=== PATIENT | male | born 1945 | race Asian ===

== ENCOUNTER 2016-08-29 19:27 | Emergency (ER) | payer MEDICARE, OTHER ==
[~2016-08-29] VITALS: Ht 162.6 cm; Wt 77.3 kg
[2016-08-29] MEDS ORDERED: ASPI-556 PO (19:33)
[2016-08-29] MEDS ORDERED: IBUP-2070 PO (19:33)
[2016-08-29] MEDS ORDERED: SIMV20 PO (19:33)
[2016-08-29] MEDS ORDERED: ALBU8.5H IH (19:33)
[2016-08-29] MEDS ORDERED: OMEP20 PO (19:33)
[2016-08-29] MEDS ORDERED: ALEN70TA48 PO (19:33)
[2016-08-29] MEDS ORDERED: LISI-662 PO (19:33)
[2016-08-29] MEDS ORDERED: METF500T4 PO (19:33)
[2016-08-29] MEDS ORDERED: CALC-776 PO (19:33)
[2016-08-29 19:36] LABS: GLUCOSE COMMENT 1 Doctor Notified; GLUCOSE,POINT OF CARE 202 MG/DL (70-110)
[2016-08-29] MEDS ORDERED: ACETAMINOPHEN 500 MG TABLET PO ONE (19:45)
[2016-08-29 20:14] LABS: INFLUENZA TYPE B NEGATIVE FOR TYPE B (NEGATIVE)
[2016-08-29] MEDS ORDERED: ALBUTEROL SULFATE 2.5 MG/0.5 ML NEB SOLUTION NEB ONE (20:45)
[2016-08-29] MEDS ORDERED: IPRATROPIUM BROMIDE 0.5 MG/2.5 ML NEB SOLUTION NEB ONE (20:45)
[2016-08-29] MEDS ORDERED: PredniSONE 20 MG TABLET PO ONE (20:45)
[2016-08-29 21:46] VITALS: BP 136/62
[2016-08-30] MEDS ORDERED: ACETAMINOPHEN 500 MG TABLET ONE (19:54)
[2016-08-30] MEDS ORDERED: 0.9% SODIUM CHLORIDE 5 ML NEB SOLUTION NEB ONE (19:55)
== END 2016-08-29 21:47 | disposition home or self-care (01) ==
LOC: EMS 19:33
DX: J44.1 Chronic obstructive pulmonary disease with (acute) exacerbation (principal); R50.9 Fever, unspecified; F17.200 Nicotine dependence, unspecified, uncomplicated; Z79.82 Long term (current) use of aspirin; I10 Essential (primary) hypertension; E78.5 Hyperlipidemia, unspecified; E11.9 Type 2 diabetes mellitus without complications; K21.9 Gastro-esophageal reflux disease without esophagitis
CPT/HCPCS: 82962; 87804; 94640; 99284; 99406

== ENCOUNTER 2023-03-30 07:28 | Inpatient (IN) | payer MEDICARE, OTHER ==
[~2023-03-30] VITALS: Ht 167.6 cm; Wt 72.2 kg
[~2023-03-30 07:28] MED LIST: ALBU8.5H8 IH; ALEN70TA65 PO; ASPI-556 PO; CALC-26 PO; IBUP-1492 PO; LISI-894 PO; METF-1211 PO; OMEP20 PO; SIMV-260 PO
[2023-03-30 07:50] LABS: BASOPHILS % (AUTO) 0.7 % (0.0-2.0); EOSINOPHILS % (AUTO) 1.4 % (1.0-6.0); HEMATOCRIT 33.5 % (41-53); HEMOGLOBIN 10.7 g/dL (13.5-17.5); LYMPHOCYTES # (AUTO) 2.4 K/uL (1.0-4.8); LYMPHOCYTES % (AUTO) 16.1 % (22.0-44.0); MEAN CORPUSCULAR VOLUME 66 fL (80-100); MONOCYTES # (AUTO) 1.1 K/uL (0.1-1.0); MONOCYTES % (AUTO) 7.3 % (2.0-9.0); NEUTROPHILS # (AUTO) 11.2 K/uL (1.8-7.7); NEUTROPHILS % (AUTO) 74.5 % (40.0-70.0); PLATELET COUNT (AUTO) 237 K/uL (150-450); RED CELL DISTRIBUTION WIDTH 14.7 % (11.5-14.5); WHITE BLOOD COUNT (AUTO) 15.1 K/uL (4.5-11.0)
[2023-03-30 07:58] LABS: CALCIUM, TOTAL 9.3 mg/dL (8.8-10.5); CARBON DIOXIDE 30 mmol/L (22-29); CHLORIDE 99 mmol/L (98-107); CREATININE 1.31 mg/dL (0.60-1.30); GLOMERULAR FILTR. RATE CALC 53 mL/min (>60); GLUCOSE,RANDOM 227 mg/dL (70-110); POTASSIUM 3.5 mmol/L (3.5-5.1); UREA NITROGEN, BLOOD 10 mg/dL (7-18)
[2023-03-30 08:01] LABS: COVID AG,FIA SOURCE NASAL SWAB
[2023-03-30 08:04] LABS: ALANINE AMINOTRANSFERASE 68 U/L (12-78); ALBUMIN 3.4 g/dL (3.4-5.0); ALKALINE PHOSPHATASE 54 U/L (46-116); ANION GAP 4 mmol/L (8-16); ASPARTATE AMINOTRANSFERASE 33 U/L (15-37); BILIRUBIN,TOTAL 0.6 mg/dL (0.1-1.0); SODIUM SERUM 133 mmol/L (136-145); TOTAL PROTEIN, SERUM 7.2 g/dL (6.4-8.2)
[2023-03-30] MEDS ORDERED: 0.9% SODIUM CHLORIDE 10 ML SYRINGE IVP PRN (08:30)
[2023-03-30] MEDS ORDERED: CefTRIAXone 1 GM/DEXTROSE 50 ML IV ONE (08:30)
[2023-03-30] MEDS ORDERED: SODIUM CHLORIDE 0.9% 1,900 ML IV ONE (08:30)
[2023-03-30 08:48] LABS: INFLUENZA TYPE A NEGATIVE FOR TYPE A (NEGATIVE); INFLUENZA TYPE B NEGATIVE FOR TYPE B (NEGATIVE)
[2023-03-30 08:49] LABS: SARS-COV2 (COVID) ANTIGEN,FIA Positive (Negative)
[2023-03-30 09:06] LABS: CREATINE KINASE, TOTAL ONLY 69 U/L (39-308)
[2023-03-30 09:09] LABS: PROTHROMBIN TIME 10.4 SEC (9.4-11.6)
[2023-03-30 09:11] LABS: RBC MORPHOLOGY COMMENT ABNORMAL RBC MORPH
[2023-03-30 11:41] LABS: APPEARANCE,URINE CLEAR (CLEAR); BILIRUBIN,URINE NEGATIVE (NEGATIVE); COLOR,URINE LIGHT YELLOW (YELLOW); GLUCOSE, URINE (UA) NEGATIVE (NEGATIVE); KETONES,URINE NEGATIVE (NEGATIVE); LEUKOCYTE ESTERASE ,URINE NEGATIVE (NEGATIVE); NITRATE,URINE NEGATIVE (NEGATIVE); OCCULT BLOOD,URINE NEGATIVE (NEGATIVE); PH,URINE 5.5 (5.0-8.0); PROTEIN,URINE NEGATIVE (NEGATIVE); SPECIFIC GRAVITIY, URINE 1.016 (1.003-1.030); UROBILINOGEN,URINE <=1.0 mg/dL (<=1.0)
[2023-03-30] MEDS ORDERED: ACETAMINOPHEN 500 MG TABLET PO ONE (11:45)
[2023-03-30] MEDS ORDERED: KETOROLAC TROMETHAMINE 30 MG/ML VIAL IVP ONE (11:45)
[2023-03-30 12:07] LABS: TROPONIN I-HIGH SENSITIVITY 18 ng/L (<76)
[2023-03-30 13:31] VITALS: BP 94/49; PULSE 73; RESP 20; TEMP 99.1
[2023-03-30] MEDS ORDERED: ALBUTEROL SULFATE HFA 90 MCG/PUFF 8 GM INHALER IH PRN (13:45)
[2023-03-30] MEDS ORDERED: BISACODYL 10 MG RECTAL RECTAL SUPPOSITORY PR PRN (13:45)
[2023-03-30] MEDS ORDERED: MORPHINE SULFATE 2 MG/ML SYRINGE IVP PRN (13:45)
[2023-03-30] MEDS ORDERED: ONDANSETRON HCL 4 MG/2 ML VIAL IVP PRN (13:45)
[2023-03-30] MEDS ORDERED: ZOLPIDEM TARTRATE 5 MG TABLET PO PRN (13:45)
[2023-03-30] MEDS ORDERED: ACETAMINOPHEN 325 MG TABLET PO PRN (13:45)
[2023-03-30] MEDS ORDERED: MAGNESIUM HYDROXIDE SUSPENSION 30 ML UDCUP PO PRN (13:45)
[2023-03-30] MEDS ORDERED: HYDROCODONE/ACETAMINOPHEN 5-325 MG TABLET PO PRN (13:45)
[2023-03-30] MEDS ORDERED: ALBU18HF12 IH (13:52)
[2023-03-30] MEDS ORDERED: ASPI-1444 PO (13:52)
[2023-03-30] MEDS: DEXAMETHASONE 4 MG TABLET PO SCH (14:41)
[2023-03-30] MEDS: HEPARIN SODIUM,PORCINE 5,000 UNITS/ML VIAL SQ SCH ×2 (15:48→23:31)
[2023-03-30] MEDS ORDERED: REMDESIVIR 200 MG in SODIUM CHLORIDE 0.9% 250 ML IV ONE (16:00)
[2023-03-30] MEDS ORDERED: SODIUM CHLORIDE 0.9% 250 ML IV ONE ×2 (16:36→16:45)
[2023-03-30] MEDS: SODIUM CHLORIDE 0.9% 1,000 ML IV SCH (18:18)
[2023-03-30] MEDS: MetFORMIN HCL 500 MG TABLET PO SCH (18:25)
[2023-03-30 18:27] LABS: GLUCOMETER DEV NAME(LOC) 6S.1B; GLUCOSE,POINT OF CARE 206 MG/DL (70-110)
[2023-03-30 20:17] VITALS: BP 106/52; PULSE 65; RESP 18; TEMP 99.4
[2023-03-30] MEDS: DOCUSATE SODIUM 100 MG CAPSULE PO SCH (20:20)
[2023-03-30] MEDS: INSULIN LISPRO 100 UNITS/ML SQ PRN (21:13)
[2023-03-30] MEDS ORDERED: DEXTROSE 50%-WATER 25 GM/50 ML SYRINGE IVP PRN (21:15)
[2023-03-30] MEDS: BENZOCAINE/MENTHOL LOZENGE PO PRN (23:56)
[2023-03-31 04:12] VITALS: BP 101/58; PULSE 73; RESP 18; TEMP 98.8
[2023-03-31] MEDS ORDERED: GuaiFENesin/D-METHORPHAN [SUGAR-FREE] 200-20MG/10 ML SYRUP UDCUP PO PRN (05:45)
[2023-03-31] MEDS: BENZOCAINE/MENTHOL LOZENGE PO PRN ×2 (06:27→17:50)
[2023-03-31] MEDS: SODIUM CHLORIDE 0.9% 1,000 ML IV SCH ×2 (06:28→23:27)
[2023-03-31 06:31] LABS: GLUCOMETER DEV NAME(LOC) 6N.1B; GLUCOSE,POINT OF CARE 454 MG/DL (70-110)
[2023-03-31 06:42] LABS: BASOPHILS % (AUTO) 0.2 % (0.0-2.0); EOSINOPHILS % (AUTO) 0 % (1.0-6.0); HEMOGLOBIN 9.6 g/dL (13.5-17.5); LYMPHOCYTES # (AUTO) 1.2 K/uL (1.0-4.8); LYMPHOCYTES % (AUTO) 15.3 % (22.0-44.0); MEAN CORPUSCULAR HEMOGLOBIN 21.7 pg (26.0-34.0); MEAN CORPUSCULAR HGB CONC 33.2 G/dL (31.0-37.0); MEAN CORPUSCULAR VOLUME 65 fL (80-100); MONOCYTES # (AUTO) 0.4 K/uL (0.1-1.0); MONOCYTES % (AUTO) 5.8 % (2.0-9.0); NEUTROPHILS % (AUTO) 78.7 % (40.0-70.0); PLATELET COUNT (AUTO) 201 K/uL (150-450); RED BLOOD CELL COUNT(AUTO) 4.44 MIL/uL (4.50-5.90); RED CELL DISTRIBUTION WIDTH 14.9 % (11.5-14.5); WHITE BLOOD COUNT (AUTO) 7.7 K/uL (4.5-11.0)
[2023-03-31] MEDS: INSULIN LISPRO 100 UNITS/ML SQ PRN ×4 (06:43→20:28)
[2023-03-31 07:11] LABS: GLUCOMETER DEV NAME(LOC) 6N.1B; GLUCOSE,POINT OF CARE 191 MG/DL (70-110)
[2023-03-31 07:24] LABS: ALBUMIN 2.6 g/dL (3.4-5.0); BILIRUBIN,TOTAL 0.5 mg/dL (0.1-1.0); CALCIUM, TOTAL 7.8 mg/dL (8.8-10.5); CREATININE 1.21 mg/dL (0.60-1.30); POTASSIUM 4.2 mmol/L (3.5-5.1); TOTAL PROTEIN, SERUM 6.2 g/dL (6.4-8.2)
[2023-03-31 07:44] LABS: RBC MORPHOLOGY COMMENT ABNORMAL RBC MORPH
[2023-03-31 08:25] VITALS: BP 101/53; PULSE 61; RESP 19; TEMP 99.6
[2023-03-31] MEDS: MetFORMIN HCL 500 MG TABLET PO SCH ×2 (08:36→17:50)
[2023-03-31] MEDS: DOCUSATE SODIUM 100 MG CAPSULE PO SCH ×2 (08:37→20:21)
[2023-03-31] MEDS: DEXAMETHASONE 4 MG TABLET PO SCH (08:37)
[2023-03-31] MEDS: HEPARIN SODIUM,PORCINE 5,000 UNITS/ML VIAL SQ SCH ×3 (08:37→23:25)
[2023-03-31] MEDS: SIMVASTATIN 20 MG TABLET PO SCH (08:38)
[2023-03-31] MEDS: PANTOPRAZOLE SODIUM 40 MG DR TABLET PO SCH (08:38)
[2023-03-31] MEDS: ASPIRIN 81 MG DR TABLET PO SCH (08:38)
[2023-03-31] MEDS: LISINOPRIL 20 MG TABLET PO SCH (08:39)
[2023-03-31] MEDS: REMDESIVIR 100 MG in SODIUM CHLORIDE 0.9% 250 ML IV SCH (16:06)
[2023-03-31 16:28] VITALS: BP 119/62; PULSE 64; RESP 19; TEMP 98.8
[2023-03-31 19:41] LABS: GLUCOMETER DEV NAME(LOC) 4E.2; GLUCOSE,POINT OF CARE 284 MG/DL (70-110)
[2023-03-31 19:41] LABS: GLUCOMETER DEV NAME(LOC) 4E.2; GLUCOSE,POINT OF CARE 274 MG/DL (70-110)
[2023-03-31 20:08] VITALS: BP 105/58; PULSE 66; RESP 18; TEMP 99.4
[2023-04-01 05:40] VITALS: BP 123/59; PULSE 56; RESP 18; TEMP 97.9
[2023-04-01] MEDS: INSULIN LISPRO 100 UNITS/ML SQ PRN ×4 (05:57→20:29)
[2023-04-01 06:30] LABS: EOSINOPHILS % (AUTO) 0 % (1.0-6.0); HEMATOCRIT 30.2 % (41-53); HEMOGLOBIN 9.6 g/dL (13.5-17.5); LYMPHOCYTES # (AUTO) 2.4 K/uL (1.0-4.8); LYMPHOCYTES % (AUTO) 18.5 % (22.0-44.0); MEAN CORPUSCULAR HGB CONC 31.8 G/dL (31.0-37.0); MEAN CORPUSCULAR VOLUME 66 fL (80-100); MONOCYTES # (AUTO) 1.2 K/uL (0.1-1.0); MONOCYTES % (AUTO) 9.5 % (2.0-9.0); NEUTROPHILS # (AUTO) 9.2 K/uL (1.8-7.7); PLATELET COUNT (AUTO) 205 K/uL (150-450); RED BLOOD CELL COUNT(AUTO) 4.56 MIL/uL (4.50-5.90); RED CELL DISTRIBUTION WIDTH 15.1 % (11.5-14.5); WHITE BLOOD COUNT (AUTO) 12.8 K/uL (4.5-11.0)
[2023-04-01 06:42] LABS: ALANINE AMINOTRANSFERASE 46 U/L (12-78); ALBUMIN 2.4 g/dL (3.4-5.0); ALKALINE PHOSPHATASE 35 U/L (46-116); ANION GAP 7 mmol/L (8-16); ASPARTATE AMINOTRANSFERASE 29 U/L (15-37); BILIRUBIN,TOTAL 0.4 mg/dL (0.1-1.0); CARBON DIOXIDE 25 mmol/L (22-29); CHLORIDE 105 mmol/L (98-107); CREATININE 1.08 mg/dL (0.60-1.30); GLOMERULAR FILTR. RATE CALC > 60 mL/min (>60); GLUCOSE,RANDOM 204 mg/dL (70-110); SODIUM SERUM 137 mmol/L (136-145); TOTAL PROTEIN, SERUM 6.1 g/dL (6.4-8.2); UREA NITROGEN, BLOOD 20 mg/dL (7-18)
[2023-04-01 07:46] LABS: GLUCOMETER DEV NAME(LOC) 6N.2B; GLUCOSE,POINT OF CARE 213 MG/DL (70-110)
[2023-04-01 07:57] LABS: RBC MORPHOLOGY COMMENT ABNORMAL RBC MORPH
[2023-04-01] MEDS: HEPARIN SODIUM,PORCINE 5,000 UNITS/ML VIAL SQ SCH ×3 (08:26→23:28)
[2023-04-01] MEDS: MetFORMIN HCL 500 MG TABLET PO SCH ×2 (08:26→18:10)
[2023-04-01 08:27] VITALS: BP 123/74; PULSE 62; RESP 19; TEMP 97.9
[2023-04-01] MEDS: LISINOPRIL 20 MG TABLET PO SCH (08:27)
[2023-04-01] MEDS: SIMVASTATIN 20 MG TABLET PO SCH (08:27)
[2023-04-01] MEDS: DEXAMETHASONE 4 MG TABLET PO SCH (08:27)
[2023-04-01] MEDS: DOCUSATE SODIUM 100 MG CAPSULE PO SCH ×2 (08:27→20:29)
[2023-04-01] MEDS: ASPIRIN 81 MG DR TABLET PO SCH (08:27)
[2023-04-01] MEDS: PANTOPRAZOLE SODIUM 40 MG DR TABLET PO SCH (08:27)
[2023-04-01] MEDS: SODIUM CHLORIDE 0.9% 1,000 ML IV SCH ×2 (08:30→23:29)
[2023-04-01 11:42] LABS: GLUCOMETER DEV NAME(LOC) 6N.1B; GLUCOSE,POINT OF CARE 291 MG/DL (70-110)
[2023-04-01 12:21] LABS: GLUCOMETER DEV NAME(LOC) 6N.2B; GLUCOSE,POINT OF CARE 252 MG/DL (70-110)
[2023-04-01] MEDS: REMDESIVIR 100 MG in SODIUM CHLORIDE 0.9% 250 ML IV SCH (16:23)
[2023-04-01 19:35] VITALS: BP 109/48; PULSE 63; RESP 18; TEMP 98.1
[2023-04-01 19:51] LABS: GLUCOMETER DEV NAME(LOC) 4E.2; GLUCOSE,POINT OF CARE 268 MG/DL (70-110)
[2023-04-01 22:21] LABS: GLUCOMETER DEV NAME(LOC) 6S.2; GLUCOSE,POINT OF CARE 274 MG/DL (70-110)
[2023-04-02 04:05] VITALS: BP 126/63; PULSE 58; RESP 18; TEMP 98.2
[2023-04-02] MEDS: INSULIN LISPRO 100 UNITS/ML SQ PRN ×3 (06:20→17:58)
[2023-04-02 06:57] LABS: GLUCOMETER DEV NAME(LOC) 6N.2B; GLUCOSE,POINT OF CARE 168 MG/DL (70-110)
[2023-04-02 07:47] LABS: BASOPHILS % (AUTO) 0.4 % (0.0-2.0); EOSINOPHILS % (AUTO) 0.1 % (1.0-6.0); HEMATOCRIT 28.8 % (41-53); HEMOGLOBIN 9.3 g/dL (13.5-17.5); LYMPHOCYTES # (AUTO) 3.7 K/uL (1.0-4.8); LYMPHOCYTES % (AUTO) 25.1 % (22.0-44.0); MEAN CORPUSCULAR HEMOGLOBIN 21.1 pg (26.0-34.0); MEAN CORPUSCULAR HGB CONC 32.2 G/dL (31.0-37.0); MEAN CORPUSCULAR VOLUME 66 fL (80-100); MONOCYTES # (AUTO) 0.9 K/uL (0.1-1.0); NEUTROPHILS % (AUTO) 68.4 % (40.0-70.0); PLATELET COUNT (AUTO) 186 K/uL (150-450); RED BLOOD CELL COUNT(AUTO) 4.39 MIL/uL (4.50-5.90); RED CELL DISTRIBUTION WIDTH 14.9 % (11.5-14.5); WHITE BLOOD COUNT (AUTO) 14.6 K/uL (4.5-11.0)
[2023-04-02 07:53] LABS: RBC MORPHOLOGY COMMENT ABNORMAL RBC MORPH
[2023-04-02 08:03] LABS: ALANINE AMINOTRANSFERASE 42 U/L (12-78); ALBUMIN 2.5 g/dL (3.4-5.0); ALKALINE PHOSPHATASE 37 U/L (46-116); ANION GAP 7 mmol/L (8-16); ASPARTATE AMINOTRANSFERASE 25 U/L (15-37); BILIRUBIN,TOTAL 0.3 mg/dL (0.1-1.0); CARBON DIOXIDE 26 mmol/L (22-29); CHLORIDE 104 mmol/L (98-107); CREATININE 1.08 mg/dL (0.60-1.30); GLOMERULAR FILTR. RATE CALC > 60 mL/min (>60); GLUCOSE,RANDOM 142 mg/dL (70-110); POTASSIUM 3.7 mmol/L (3.5-5.1); SODIUM SERUM 137 mmol/L (136-145); TOTAL PROTEIN, SERUM 6.1 g/dL (6.4-8.2); UREA NITROGEN, BLOOD 22 mg/dL (7-18)
[2023-04-02] MEDS: HEPARIN SODIUM,PORCINE 5,000 UNITS/ML VIAL SQ SCH ×2 (09:22→15:51)
[2023-04-02] MEDS: DOCUSATE SODIUM 100 MG CAPSULE PO SCH (09:22)
[2023-04-02] MEDS: PANTOPRAZOLE SODIUM 40 MG DR TABLET PO SCH (09:22)
[2023-04-02] MEDS: LISINOPRIL 20 MG TABLET PO SCH (09:22)
[2023-04-02] MEDS: MetFORMIN HCL 500 MG TABLET PO SCH ×2 (09:23→17:50)
[2023-04-02] MEDS: SIMVASTATIN 20 MG TABLET PO SCH (09:23)
[2023-04-02] MEDS: ASPIRIN 81 MG DR TABLET PO SCH (09:24)
[2023-04-02] MEDS: REMDESIVIR 100 MG in SODIUM CHLORIDE 0.9% 250 ML IV SCH (15:51)
[2023-04-02] MEDS ORDERED: SODIUM CHLORIDE 0.9% 250 ML IV ONE (15:55)
[2023-04-02 20:41] LABS: GLUCOMETER DEV NAME(LOC) 6S.2; GLUCOSE,POINT OF CARE 171 MG/DL (70-110)
[2023-04-02 20:41] LABS: GLUCOMETER DEV NAME(LOC) 6S.2; GLUCOSE,POINT OF CARE 159 MG/DL (70-110)
== END 2023-04-02 19:25 | disposition home or self-care (01) | DRG 137 ==
LOC: EMS 07:37 → 6S 11:33 → 6N 16:35
PROVIDERS: ADMIT Internal Medicine; ATTEND Internal Medicine
PROC: XW033E5 Introduction of Remdesivir Anti-infective into Peripheral Vein, Percutaneous Approach, New Technology Group 5 (ICD-10-PCS; principal; 2023-03-30)
DX: U07.1 COVID-19 (principal); J12.82 Pneumonia due to coronavirus disease 2019; N17.9 Acute kidney failure, unspecified; D63.8 Anemia in other chronic diseases classified elsewhere; E78.00 Pure hypercholesterolemia, unspecified; E11.65 Type 2 diabetes mellitus with hyperglycemia; I10 Essential (primary) hypertension; Z79.899 Other long term (current) drug therapy; Z79.82 Long term (current) use of aspirin
CPT/HCPCS: 71045; 80053; 81003; 82550; 82962; 83605; 84145; 84484; 85025; 85610; 87040; 87804; 93005; 99291; J0696; J1644; J1885; J7030; J7050; J8540; Q9967; 36415-L1; 36415-TC

== ENCOUNTER 2025-05-24 10:26 | Emergency (ER) | payer MEDICARE, OTHER ==
[~2025-05-24] VITALS: Ht 162.6 cm; Wt 75.0 kg
[~2025-05-24 10:26] MED LIST changes: +ALBU18HF12 IH; -ALBU8.5H8 IH; +ASPI-1444 PO; -ASPI-556 PO; -IBUP-1492 PO; -LISI-894 PO; +OMEP-148 PO; -OMEP20 PO
[2025-05-24 12:32] LABS: PLATELET COUNT (AUTO) 227 K/uL (150-450); RED BLOOD CELL COUNT(AUTO) 5.52 MIL/uL (4.50-5.90); RED CELL DISTRIBUTION WIDTH 16.6 % (11.5-14.5); WHITE BLOOD COUNT (AUTO) 8.4 K/uL (4.5-11.0)
[2025-05-24 12:41] LABS: CALCIUM, TOTAL 9.3 mg/dL (8.8-10.5); CREATININE 1.25 mg/dL (0.60-1.30); GLOMERULAR FILTR. RATE CALC 56 mL/min (>60); GLUCOSE,RANDOM 242 mg/dL (70-110); SODIUM SERUM 138 mmol/L (136-145); UREA NITROGEN, BLOOD 9 mg/dL (7-18)
[2025-05-24 12:47] LABS: ASPARTATE AMINOTRANSFERASE 44.0 U/L (15-37); TOTAL PROTEIN, SERUM 7.1 g/dL (6.4-8.2)
[2025-05-24 12:49] LABS: TROPONIN I-HIGH SENSITIVITY 14 ng/L (<76)
[2025-05-24 13:22] VITALS: BP 142/72; PULSE 19; RESP 18; TEMP 98.6; O2SAT 100
[2025-05-24] MEDS ORDERED: ONDA-104 PO (13:28)
[2025-05-24 13:57] LABS: APPEARANCE,URINE CLEAR (CLEAR); GLUCOSE, URINE (UA) 300-500 mg/dL (NEGATIVE); LEUKOCYTE ESTERASE ,URINE TRACE (NEGATIVE); NITRATE,URINE NEGATIVE (NEGATIVE); OCCULT BLOOD,URINE NEGATIVE (NEGATIVE); SPECIFIC GRAVITIY, URINE 1.014 (1.003-1.030)
[2025-05-24 14:02] LABS: SQUAMOUS EPITHELIAL CELL,UR Rare /LPF (None Seen)
== END 2025-05-24 14:30 | disposition home or self-care (01) ==
LOC: EMS 10:26
DX: R11.2 Nausea with vomiting, unspecified (principal); E11.9 Type 2 diabetes mellitus without complications; E78.00 Pure hypercholesterolemia, unspecified; I10 Essential (primary) hypertension; Z90.49 Acquired absence of other specified parts of digestive tract; Z79.82 Long term (current) use of aspirin; Z79.899 Other long term (current) drug therapy
CPT/HCPCS: 71045; 80048; 80076; 81001; 83880; 84484; 85025; 85610; 85730; 93005; 99285; 36415-L1; 36415-TC